=== PATIENT | male | born 1965 | race Caucasian/White ===

== ENCOUNTER 2021-04-06 12:12 | Observation (INO) ==
[~2021-04-06 12:12] MED LIST: Ibuprofen ADULT LIQ 600 MG/30 ML UDC PEG TUBE SCH
[2021-04-06] MEDS ORDERED: Ondansetron 4 mg VIAL 2 MG/ML 2 ml VIAL ONE ×2 (12:20→14:44)
[2021-04-06 12:41] LABS: ABS Eosinophils 0.1 10^3/ul (0-0.6); ABS Lymphocytes 0.1 10^3/ul (1.0-4.8); ABS Monocytes 0.4 10^3/ul (0-0.8); ABS Neutrophils 12.4 10^3/ul (1.5-7.7); Eosinophil % 0.5 %; Hematocrit 40 % (42-52); Hemoglobin 13.7 g/dL (14.0-18.0); Lymphocyte % 0.8 %; Mean Corpuscular HGB Conc 35 g/dL (31-36); Mean Corpuscular Hemoglobin 33 pg (27-31); Mean Corpuscular Volume 97 fL (80-94); Mean Platelet Volume 7.1 fL (7.4-10.4); Platelet Count 288 10^3/uL (150-450); Red Cell Distribution Width 14 % (10-15); White Blood Count 13.1 10^3/uL (3.5-10.8)
[2021-04-06 12:59] LABS: Albumin 4.3 g/dL (3.2-5.2); Albumin/Globulin Ratio 1.5 (1-3); Calcium 8.7 mg/dL (8.6-10.3); EGFR African American 129.9 (>60); EGFR Non-African American 107.3 (>60); Globulin 2.9 g/dL (2-4); Magnesium 2.1 mg/dL (1.9-2.7); Potassium 4.6 mmol/L (3.5-5.0); Total Bilirubin 0.3 mg/dL (0.2-1.0); Total Protein 7.2 g/dL (6.4-8.9)
[2021-04-06] MEDS ORDERED: Lorazepam PYXIS KEY ONE (14:44)
[2021-04-06] MEDS ORDERED: oxyCODONE 5 mg/5 ml ORAL.SOLN UDC ONE (14:44)
[2021-04-06] MEDS ORDERED: LORazepam 2 mg VIAL 1 ml ONE ×2 (14:45→14:46)
[2021-04-06] MEDS ORDERED: NS 0.9% 1000 ml BAG 1,000 ML IV SCH (18:00)
[2021-04-06] MEDS ORDERED: Mupirocin 2% OINT TUBE TOPICAL SCH (21:00)
[2021-04-06] MEDS ORDERED: Enoxaparin 40 MG/0.4 ML SYR SUBCUT SCH (21:00)
[2021-04-06] MEDS ORDERED: Sucralfate 1 gm SUSP 1 GM/10 ML UDC PO SCH (21:00)
[2021-04-06] MEDS: Ondansetron 4 mg VIAL 2 MG/ML 2 ml VIAL IV PRN (21:01)
[2021-04-06] MEDS: oxyCODONE 5 mg/5 ml ORAL.SOLN UDC PO PRN (21:27)
[2021-04-06] MEDS ORDERED: LORazepam 2 mg VIAL 1 ml IV PUSH PRN (21:34)
[2021-04-07] MEDS: Ondansetron 4 mg VIAL 2 MG/ML 2 ml VIAL IV PRN (02:21)
[2021-04-07] MEDS: Ibuprofen ADULT LIQ 600 MG/30 ML UDC PO PRN ×2 (03:24→12:04)
[2021-04-07 06:27] LABS: ABS Eosinophils 0.2 10^3/ul (0-0.6); ABS Lymphocytes 0.2 10^3/ul (1.0-4.8); ABS Monocytes 0.3 10^3/ul (0-0.8); ABS Neutrophils 8.1 10^3/ul (1.5-7.7); Eosinophil % 2.6 %; Hematocrit 33 % (42-52); Hemoglobin 11.9 g/dL (14.0-18.0); Lymphocyte % 1.7 %; Mean Corpuscular HGB Conc 36 g/dL (31-36); Mean Corpuscular Hemoglobin 35 pg (27-31); Mean Corpuscular Volume 97 fL (80-94); Mean Platelet Volume 7.7 fL (7.4-10.4); Nucleated Red Blood Cells % 0.1; Platelet Count 215 10^3/uL (150-450); Red Blood Count 3.45 10^6 /uL (4.18-5.48); Red Cell Distribution Width 14 % (10-15); White Blood Count 8.8 10^3/uL (3.5-10.8)
[2021-04-07 06:45] LABS: Calcium 7.2 mg/dL (8.6-10.3); EGFR African American 147.9 (>60); EGFR Non-African American 122.3 (>60); Potassium 4.1 mmol/L (3.5-5.0)
[2021-04-07] MEDS: oxyCODONE 5 mg/5 ml ORAL.SOLN UDC PO PRN (08:41)
[2021-04-07] MEDS ORDERED: methylPREDNISolone 125 mg 2 ML VIAL IV SCH (09:00)
[2021-04-07] MEDS ORDERED: Nicotine PATCH 14 MG/24 HR PATCH TRANSDERM SCH (09:00)
[2021-04-07] MEDS ORDERED: CMCS: Pravastatin 20 mg TAB (NF) PO SCH (09:00)
[2021-04-07 13:38] VITALS: BP 119/67
== END 2021-04-07 15:24 | disposition left against medical advice (07) ==
LOC: CHOA 12:12 → INTOOBSV 17:16 → MED 17:16
PROVIDERS: ADMIT Internal Medicine Hematology & Oncology; ATTEND Internal Medicine Hematology & Oncology

== ENCOUNTER 2021-05-16 13:51 | Inpatient (IN) ==
[2021-05-16 14:14] LABS: Hematocrit 38 % (42-52); Hemoglobin 13.1 g/dL (14.0-18.0); Mean Corpuscular HGB Conc 34 g/dL (31-36); Mean Corpuscular Hemoglobin 34 pg (27-31); Mean Corpuscular Volume 98 fL (80-94); Mean Platelet Volume 6.1 fL (7.4-10.4); Platelet Count 493 10^3/uL (150-450); Red Blood Count 3.91 10^6 /uL (4.18-5.48); Red Cell Distribution Width 15 % (10-15); White Blood Count 18.7 10^3/uL (3.5-10.8)
[2021-05-16] MEDS ORDERED: Cefepime 2 GM in Dextrose 2 GM/50 ML BAG IV ONE (14:28)
[2021-05-16] MEDS ORDERED: Lactated Ringers 1000 ml BAG 1,000 ML IV ONE (14:28)
[2021-05-16 14:32] LABS: ALT 24 U/L (7-52); AST 26 U/L (13-39); Albumin 3.7 g/dL (3.2-5.2); Albumin/Globulin Ratio 1.1 (1-3); Alkaline Phosphatase 113 U/L (35-149); Anion Gap 9 mmol/L (2-11); Blood Urea Nitrogen 19 mg/dL (6-24); CO2 Carbon Dioxide 26 mmol/L (22-32); Calcium 8.3 mg/dL (8.6-10.3); Chloride 100 mmol/L (101-111); EGFR African American 131.9 (>60); Globulin 3.3 g/dL (2-4); Glucose 134 mg/dL (70-100); Potassium 4.7 mmol/L (3.5-5.0); Sodium 135 mmol/L (135-145)
[2021-05-16 14:36] LABS: Troponin I 0.04 ng/mL (<0.03)
[2021-05-16 14:58] LABS: Venous Bicarbonate HCO3 26.1 mmol/L (24-28)
[2021-05-16 15:01] LABS: RBC Morphology Normal (Normal)
[2021-05-16 15:02] LABS: Toxic Granulation 1+
[2021-05-16 15:08] LABS: ABS Lymphocytes 0.5 10^3/ul (1.0-4.8); ABS Monocytes 1.1 10^3/ul (0-0.8); Eosinophil % 0.2 %; Lymphocyte % 2.7 %; Nucleated Red Blood Cells % 0.1
[2021-05-16] MEDS ORDERED: Albuterol HFA INHALER 8 gm MDI INH PRN (16:55)
[2021-05-16] MEDS ORDERED: Azithromycin 500 mg/250 ml NS 500 MG/250 ML BAG IVPB SCH (17:00)
[2021-05-16] MEDS ORDERED: oxyCODONE 5 mg/5 ml ORAL.SOLN UDC PRN (17:10)
[2021-05-16] MEDS ORDERED: Lorazepam PYXIS KEY PRN (18:22)
[2021-05-16] MEDS: Doxycycline 100 MG in NS 0.9% 250 ML BAG IVPB SCH (18:25)
[2021-05-16] MEDS: methylPREDNISolone SOD 40 mg/ml 1 ml VIAL IV SCH (18:25)
[2021-05-16] MEDS ORDERED: Furosemide 40 mg/4 ml IV VIAL IV SLOW PU ONE (18:31)
[2021-05-16] MEDS: Enoxaparin 80 MG/0.8 ML SYR SUBCUT SCH (20:55)
[2021-05-16] MEDS: cefTRIAXone 1 gm/50 mL NS BAG 1 GM/50 ML BAG IVPB SCH (20:55)
[2021-05-16 21:35] LABS: Troponin I 0.04 ng/mL (<0.03)
[2021-05-16] MEDS ORDERED: oxyCODONE 5 mg/5 ml ORAL.SOLN UDC PO ONE (21:37)
[2021-05-17] MEDS: LORazepam 2 mg VIAL 1 ml IV PUSH PRN ×6 (00:30→22:35)
[2021-05-17] MEDS: oxyCODONE 5 mg/5 ml ORAL.SOLN UDC PRN ×5 (00:38→22:35)
[2021-05-17] MEDS: methylPREDNISolone SOD 40 mg/ml 1 ml VIAL IV SCH ×3 (03:09→17:37)
[2021-05-17 05:17] LABS: ABS Lymphocytes 0.4 10^3/ul (1.0-4.8); ABS Monocytes 0.7 10^3/ul (0-0.8); ABS Neutrophils 16.8 10^3/ul (1.5-7.7); Hematocrit 38 % (42-52); Hemoglobin 12.8 g/dL (14.0-18.0); Lymphocyte % 2.1 %; Mean Corpuscular HGB Conc 34 g/dL (31-36); Mean Corpuscular Hemoglobin 33 pg (27-31); Mean Corpuscular Volume 98 fL (80-94); Mean Platelet Volume 6.6 fL (7.4-10.4); Platelet Count 503 10^3/uL (150-450); Red Blood Count 3.86 10^6 /uL (4.18-5.48); Red Cell Distribution Width 15 % (10-15); White Blood Count 17.9 10^3/uL (3.5-10.8)
[2021-05-17 05:48] LABS: ALT 23 U/L (7-52); AST 24 U/L (13-39); Albumin 3.5 g/dL (3.2-5.2); Alkaline Phosphatase 116 U/L (35-149); Anion Gap 9 mmol/L (2-11); Blood Urea Nitrogen 20 mg/dL (6-24); CO2 Carbon Dioxide 29 mmol/L (22-32); Calcium 8.1 mg/dL (8.6-10.3); Chloride 100 mmol/L (101-111); EGFR Non-African American 118.2 (>60); Globulin 3.5 g/dL (2-4); Glucose 149 mg/dL (70-100); Magnesium 2.2 mg/dL (1.9-2.7); Phosphorus 2.9 mg/dL (2.5-5.0); Potassium 4.5 mmol/L (3.5-5.0); Sodium 138 mmol/L (135-145)
[2021-05-17] MEDS: Doxycycline 100 MG in NS 0.9% 250 ML BAG IVPB SCH ×2 (06:11→18:20)
[2021-05-17] MEDS: Nicotine PATCH 21 MG/24 HR PATCH TRANSDERM SCH (07:48)
[2021-05-17] MEDS: CMCS:Pravastatin 20 mg TAB (NF) PO SCH (07:54)
[2021-05-17] MEDS: Enoxaparin 80 MG/0.8 ML SYR SUBCUT SCH ×2 (07:54→20:30)
[2021-05-17 08:16] LABS: Troponin I 0.05 ng/mL (<0.03)
[2021-05-17] MEDS ORDERED: Ondansetron 4 mg VIAL 2 MG/ML 2 ml VIAL IV PRN (12:47)
[2021-05-17] MEDS: cefTRIAXone 1 gm/50 mL NS BAG 1 GM/50 ML BAG IVPB SCH (20:30)
[2021-05-17] MEDS: Ondansetron ODT 4 mg TAB 4 MG TAB SL PRN (22:24)
[2021-05-18] MEDS ORDERED: oxyCODONE 5 mg/5 ml ORAL.SOLN UDC ONE ×2 (00:51→23:15)
[2021-05-18] MEDS: LORazepam 2 mg VIAL 1 ml IV PUSH PRN ×4 (02:34→19:57)
[2021-05-18] MEDS: oxyCODONE 5 mg/5 ml ORAL.SOLN UDC PRN ×4 (02:34→19:35)
[2021-05-18] MEDS: methylPREDNISolone SOD 40 mg/ml 1 ml VIAL IV SCH ×3 (02:35→17:08)
[2021-05-18] MEDS: Doxycycline 100 MG in NS 0.9% 250 ML BAG IVPB SCH ×2 (05:37→16:58)
[2021-05-18] MEDS: Enoxaparin 80 MG/0.8 ML SYR SUBCUT SCH ×2 (08:09→22:54)
[2021-05-18] MEDS: Nicotine PATCH 21 MG/24 HR PATCH TRANSDERM SCH (08:11)
[2021-05-18] MEDS: CMCS:Pravastatin 20 mg TAB (NF) PO SCH (08:17)
[2021-05-18 11:47] LABS: Hematocrit 38 % (42-52); Hemoglobin 12.7 g/dL (14.0-18.0); Mean Corpuscular HGB Conc 34 g/dL (31-36); Mean Corpuscular Hemoglobin 33 pg (27-31); Mean Corpuscular Volume 98 fL (80-94); Mean Platelet Volume 6.4 fL (7.4-10.4); Platelet Count 573 10^3/uL (150-450); Red Blood Count 3.86 10^6 /uL (4.18-5.48); Red Cell Distribution Width 15 % (10-15); White Blood Count 21.7 10^3/uL (3.5-10.8)
[2021-05-18 12:05] LABS: Albumin 3.6 g/dL (3.2-5.2); Albumin/Globulin Ratio 1.1 (1-3); Calcium 8.4 mg/dL (8.6-10.3); EGFR African American 171.3 (>60); EGFR Non-African American 141.6 (>60); Globulin 3.3 g/dL (2-4); Potassium 4.8 mmol/L (3.5-5.0); Total Bilirubin 0.3 mg/dL (0.2-1.0); Total Protein 6.9 g/dL (6.4-8.9)
[2021-05-18 12:24] LABS: ABS Lymphocytes 0.3 10^3/ul (1.0-4.8); ABS Monocytes 0.9 10^3/ul (0-0.8); ABS Neutrophils 20.5 10^3/ul (1.5-7.7); Lymphocyte % 1.3 %
[2021-05-18 17:28] LABS: Body Fluid Source Pleural Fluid
[2021-05-18 19:34] LABS: Body Fluid WBC 513 /mcL
[2021-05-18 20:06] LABS: Body Fluid Mono 43 %; Body Fluid Total Cells Counted 200
[2021-05-18 20:07] LABS: Body Fluid Appearance Cloudy; Body Fluid Color Colorless
[2021-05-18] MEDS: cefTRIAXone 1 gm/50 mL NS BAG 1 GM/50 ML BAG IVPB SCH (22:47)
[2021-05-19] MEDS: methylPREDNISolone SOD 40 mg/ml 1 ml VIAL IV SCH ×2 (02:05→08:44)
[2021-05-19] MEDS: oxyCODONE 5 mg/5 ml ORAL.SOLN UDC PRN ×2 (02:05→06:01)
[2021-05-19] MEDS: Ondansetron ODT 4 mg TAB 4 MG TAB SL PRN (05:55)
[2021-05-19] MEDS: Doxycycline 100 MG in NS 0.9% 250 ML BAG IVPB SCH (05:57)
[2021-05-19 06:27] LABS: Hematocrit 38 % (42-52); Mean Corpuscular HGB Conc 34 g/dL (31-36); Mean Corpuscular Hemoglobin 33 pg (27-31); Mean Corpuscular Volume 98 fL (80-94); Mean Platelet Volume 6.7 fL (7.4-10.4); Platelet Count 551 10^3/uL (150-450); Red Blood Count 3.92 10^6 /uL (4.18-5.48); Red Cell Distribution Width 15 % (10-15); White Blood Count 22.5 10^3/uL (3.5-10.8)
[2021-05-19 06:48] LABS: Albumin 3.3 g/dL (3.2-5.2); Albumin/Globulin Ratio 1.1 (1-3); EGFR African American 193.9 (>60); EGFR Non-African American 160.2 (>60); Globulin 3.1 g/dL (2-4); Potassium 4.8 mmol/L (3.5-5.0); Total Bilirubin 0.2 mg/dL (0.2-1.0); Total Protein 6.4 g/dL (6.4-8.9)
[2021-05-19 07:21] LABS: ABS Basophils 0.2 10^3/ul (0-0.2); ABS Lymphocytes 0.3 10^3/ul (1.0-4.8); ABS Monocytes 1.3 10^3/ul (0-0.8); ABS Neutrophils 20.7 10^3/ul (1.5-7.7); Lymphocyte % 1.4 %
[2021-05-19 08:43] VITALS: BP 145/101
[2021-05-19] MEDS: CMCS:Pravastatin 20 mg TAB (NF) PO SCH (08:44)
[2021-05-19] MEDS: Enoxaparin 80 MG/0.8 ML SYR SUBCUT SCH (08:44)
[2021-05-19] MEDS: Nicotine PATCH 21 MG/24 HR PATCH TRANSDERM SCH (08:46)
[2021-05-19] MEDS ORDERED: Scopolamine PATCH Remove NOTE PATCH OFF SCH (18:30)
== END 2021-05-19 10:15 | disposition home or self-care (01) | DRG 374 ==
LOC: ED 13:51 → ICU 16:22 → MEDTELE 05-17 15:42 → MED 05-18 22:41
PROVIDERS: ADMIT Internal Medicine; ATTEND Internal Medicine Hematology & Oncology